=== PATIENT | male | born 2000 | race Caucasian/White ===

== ENCOUNTER 2019-03-24 11:05 | Emergency (ER) | payer BC, OTHER ==
[2019-03-24 11:20] VITALS: RESP 18
[2019-03-24] MEDS ORDERED: DIPH,PERTUS(ACELL)TETVAC-LF 0.5 ML VIAL IM ONE (11:37)
[2019-03-24] MEDS ORDERED: LIDOCAINE 1% INJ 10MG/ML (20 ML MDV) SQ ONE (11:38)
[2019-03-24] MEDS ORDERED: ceFAZolin 1,000 MG VIAL (IM USE) IM STA (11:38)
--- NOTE | 2019-03-24 11:41 | ED ---
General Adult HPI - General Chief complaint: Wound/Laceration Stated complaint: Arm laceration-[facility] Time Seen by Provider: 03/24/19 11:27 Source: patient, RN notes reviewed, old records reviewed Mode of arrival: ambulatory Limitations: no limitations - History of Present Illness Initial comments: Patient is a 18-year-old male presents emergency department today for a laceration over his left anterior forearm. Patient reports that a soft fell on it. Patient reports it was a saws all. Patient reports that they saw was not running time. Patient states that he has pain with range of motion of his fingers. He states it was a laceration and involves muscle. Patient denies any fevers or chills, shortness of breath, nausea or vomiting. He does report normal sensation to the distal hand. - Related Data Home Medications Medication Instructions Recorded Confirmed Naproxen Sodium [Aleve] 440 mg PO Q12HR PRN 03/24/19 03/24/19 Previous Rx's Medication Instructions Recorded Cephalexin [Keflex] 500 mg PO Q6HR #28 cap 03/24/19 Ibuprofen [Motrin] 600 mg PO Q6HR PRN #20 tab 03/24/19 Allergies Allergy/AdvReac Type Severity Reaction Status Date / Time peanut Allergy Swelling Verified 03/24/19 11:32 Review of Systems ROS Statement: Those systems with pertinent positive or pertinent negative responses have been documented in the HPI. ROS Other: All systems not noted in ROS Statement are negative. Past Medical History Past Medical History: No Reported History History of Any Multi-Drug Resistant Organisms: None Reported Past Surgical History: No Surgical Hx Reported Past Psychological History: No Psychological Hx Reported Smoking Status: Never smoker Past Alcohol Use History: None Reported Past Drug Use History: None Reported General Exam - General Exam Comments Initial Comments: 18-year-old male. Alert and oriented 3. Limitations: no limitations General appearance: alert Head exam: Present: atraumatic, normocephalic, normal inspection Eye exam: Present: normal appearance, PERRL, EOMI. Absent: scleral icterus, conjunctival injection, periorbital swelling ENT exam: Present: normal exam, mucous membranes moist Neck exam: Present: normal inspection. Absent: tenderness, meningismus, lymphadenopathy Respiratory exam: Present: normal lung sounds bilaterally. Absent: respiratory distress, wheezes, rales, rhonchi, stridor Cardiovascular Exam: Present: regular rate, normal rhythm, normal heart sounds. Absent: systolic murmur, diastolic murmur, rubs, gallop, clicks GI/Abdominal exam: Present: soft, normal bowel sounds. Absent: distended, tenderness, guarding, rebound, rigid Extremities exam: Present: normal inspection, full ROM, normal capillary refill. Absent: tenderness, pedal edema, joint swelling, calf tenderness Left Elbow exam: Present: normal inspection, full ROM Forearm Wrist exam: Present: full ROM, laceration (Patient has a 6 cm laceration over the anterior forearm.). Absent: normal inspection Hand Wrist exam: Present: normal inspection, full ROM Neuro motor exam: Present: wrist extension intact, thumb opposition intact, thumb IP flexion intact, thumb adduction intact, fingers 2-5 abduction intact Back exam: Present: normal inspection Neurological exam: Present: alert, oriented X3, CN II-XII intact Psychiatric exam: Present: normal affect, normal mood Skin exam: Present: warm, dry, intact, normal color. Absent: rash Course Vital Signs 03/24/19 03/24/19 11:17 13:39 Temperature 98.3 F 98 F Pulse Rate 76 60 Respiratory 18 18 Rate Blood Pressure 134/77 133/70 O2 Sat by Pulse 100 Oximetry Procedures - Laceration Laceration #1 Site: upper extremity (forearm) Size (cm): 6 Description: linear Depth: involves muscle layer Anesthetic Used: lidocaine 1% Anesthesia Technique: local infiltration Amount (mls): 10 Pre-repair: wound explored, irrigated extensively Type of Sutures: nylon, vicryl Size of Sutures: 4-0 Number of Sutures: 14 (4 internal vicryl) Technique: simple, interrupted Patient Tolerated Procedure: well, no complications Medical Decision Making - Medical Decision Making 18-year-old male presents today after saw injury that fell onto his left forearm. Patient has full range motion of his fingers, sensation is normal distally. The same Patient does have a laceration of the muscle but no evidence of foreign bodies on x-ray. Patient's wound was thoroughly irrigated. 4 Vicryl sutures in 10 nylon sutures were placed to close the wound. Patient given his tetanus shot and I'm. Discussed with the Patient on Keflex for Concern for an Tympany and Wound Infection Prevention. Discussed Return Parameters. All Questions Were Answered. - Radiology Data Radiology results: report reviewed No acute osseous abnormality. Soft tissue injury. No radiopaque foreign bodies identified. Disposition Clinical Impression: Forearm laceration, Laceration of muscle Disposition: HOME SELF-CARE Condition: Good Instructions (If sedation given, give patient instructions): Care For Your Stitches (ED) Additional Instructions: Please return to the emergency room in 8-10 days to have sutures removed. Please leave wound covered for the first 24-48 hours and then leave open to air after that time. Please use clean soap and water to clean the suture area to prevent scabbing over the top of your sutures. Please watch for any signs of infection which may include but not limited to increased pain, swelling, redness, fever or chills. Please return to the emergency room if any signs of infection do occur. Please return to the emergency room for any other concerns or complications. - Prescriptions: Cephalexin [Keflex] 500 mg PO Q6HR #28 cap Ibuprofen [Motrin] 600 mg PO Q6HR PRN #20 tab PRN Reason: Pain Is patient prescribed a controlled substance at d/c from ED?: No Referrals: Hermes Nair III, MD [Primary Care Provider] - 1-2 days Kirby Adams MD [STAFF PHYSICIAN] - 1-2 days Time of Disposition: 13:23
--- NOTE | 2019-03-24 11:55 | XR ---
EXAMINATION TYPE: XR forearm LT DATE OF EXAM: 03/24/2019 COMPARISON: None HISTORY: Laceration from saw TECHNIQUE: Left forearm is examined in 2 projections. FINDINGS: There is a large soft tissue injury over the ulnar lateral aspect of the soft tissues. No r adiopaque foreign bodies are evident. The osseous structures are intact. IMPRESSION: 1. No acute osseous abnormality. 2. Soft tissue injury. No radiopaque foreign bodies identified.
[2019-03-24] MEDS ORDERED: IBUPROFEN 600 MG STARTER PACK 4 TAB BTL PO STA (13:23)
[2019-03-24 13:40] VITALS: BP 133/70; PULSE 60; TEMP 98
== END 2019-03-24 13:39 | disposition home or self-care (01) ==
LOC: EC 11:05
DX: S51.812A Laceration without foreign body of left forearm, initial encounter (principal); Z23 Encounter for immunization; Z91.010 Allergy to peanuts; W31.2XXA Contact with powered woodworking and forming machines, initial encounter; Y92.69 Other specified industrial and construction area as the place of occurrence of the external cause; Y99.0 Civilian activity done for income or pay
CPT/HCPCS: 73090; 90715; 99283; 12002; 90471; 96372; J0690; J2001

== ENCOUNTER 2019-05-07 09:38 | Emergency (ER) | payer BC, OTHER ==
[2019-05-07 09:47] VITALS: RESP 18; TEMP 97.9
[2019-05-07] MEDS ORDERED: LIDOCAINE 1% INJ 10MG/ML (20 ML MDV) SQ ONE (10:04)
[2019-05-07] MEDS ORDERED: HYDROcodone/APAP 5-325MG 1 EACH TAB PO STA (10:04)
--- NOTE | 2019-05-07 10:07 | ED ---
General Adult HPI - General Chief complaint: Extremity Injury, Upper Stated complaint: Nail through fingers Time Seen by Provider: 05/07/19 09:54 Source: patient Mode of arrival: ambulatory Limitations: no limitations - History of Present Illness Initial comments: Patient is a 18-year-old male presenting to emergency Department with a chief complaint of foreign body in the hand. Patient reports he was working with a nail gun when he accidentally shot a nail through his left second and third digit. Patient denies any numbness and tingling. Patient reports the pain is 8 and throbbing. Patient has limited range of motion and the second and third digit due to them being stuck together from the nail. Patient reports his tetanus is up-to-date. Patient denies taking medication to alleviate the symptoms. - Related Data Home Medications Medication Instructions Recorded Confirmed Pseudoephedrine HCl [Sudafed] 30 mg PO Q4HR PRN 05/07/19 05/07/19 guaiFENesin [Mucinex] 600 mg PO BID PRN 05/07/19 05/07/19 Previous Rx's Medication Instructions Recorded Cephalexin [Keflex] 500 mg PO Q6HR #40 cap 05/07/19 Allergies Allergy/AdvReac Type Severity Reaction Status Date / Time peanut Allergy Swelling Verified 05/07/19 10:21 Review of Systems ROS Statement: Those systems with pertinent positive or pertinent negative responses have been documented in the HPI. ROS Other: All systems not noted in ROS Statement are negative. Past Medical History Past Medical History: No Reported History History of Any Multi-Drug Resistant Organisms: None Reported Past Surgical History: No Surgical Hx Reported Past Psychological History: No Psychological Hx Reported Smoking Status: Never smoker Past Alcohol Use History: None Reported Past Drug Use History: None Reported General Exam Limitations: no limitations General appearance: alert, in no apparent distress Head exam: Present: atraumatic, normocephalic, normal inspection Eye exam: Present: normal appearance, PERRL, EOMI Pupils: Present: normal accommodation ENT exam: Present: normal exam, normal oropharynx, mucous membranes moist, TM's normal bilaterally, normal external ear exam Neck exam: Present: normal inspection, full ROM Respiratory exam: Present: normal lung sounds bilaterally Cardiovascular Exam: Present: regular rate, normal rhythm, normal heart sounds Extremities exam: Present: tenderness (Tenderness at the site), normal capillary refill, other (+2 ulnar and radial pulses bilaterally.). Absent: normal inspection (Steel nail through the distal end of second and third digit) Back exam: Present: normal inspection, full ROM Neurological exam: Present: alert, oriented X3 Psychiatric exam: Present: normal affect, normal mood Skin exam: Present: warm, intact, normal color Course Vital Signs 05/07/19 09:44 Temperature 97.9 F Pulse Rate 86 Respiratory 18 Rate Blood Pressure 148/87 O2 Sat by Pulse 100 Oximetry Procedures - Orthopedic Splinting/Casting Injury #1 Side: left Upper Extremity Injury Location: finger Upper Extremity Immobilizer: finger (other) (Second left digit) Injury #2 Side: left Upper Extremity Injury Location: finger (Third left digit) Upper Extremity Immobilizer: finger (other) Medical Decision Making - Medical Decision Making Patient is a 18-year-old male presenting to emergency department with a chief complaint of foreign body in the left hand. The nail appears to be going through his distal second and third digit. Patient is neurovascularly intact. X-ray before foreign body removal indicates no bony fractures. Appears the nail does not go through any of the bones, only soft tissue. I was able to remove the foreign body by cutting the top end and pulling the nail through. Patient was given analgesia and digital block. Patient will be discharged with Keflex. Repeat x-ray shows a chip fracture on the second and third digit. Finger splint applied on the fingers. Patient given Tylenol 3 starter pack and advised about the possible side effects to medication. Patient advised to follow-up with orthopedics. Strict return parameters were thoroughly discussed the patient was under standing and agreeable. Case discussed with physician. Disposition Clinical Impression: Foreign body finger, Puncture wound of finger of left hand Disposition: HOME SELF-CARE Condition: Stable Instructions (If sedation given, give patient instructions): Soft Tissue Foreign Body (ED) Additional Instructions: Please follow up with orthopedics. Please take prescribed medication as directed. Please return to emergency department if symptoms worsen. Prescriptions: Cephalexin [Keflex] 500 mg PO Q6HR #40 cap Is patient prescribed a controlled substance at d/c from ED?: No Referrals: Hermes Nair III, MD [Primary Care Provider] - 1-2 days Kevin Gasca DO [Medical Doctor] - 1-2 days Time of Disposition: 11:55
--- NOTE | 2019-05-07 10:39 | XR ---
EXAMINATION TYPE: XR hand complete LT DATE OF EXAM: 05/07/2019 CLINICAL HISTORY: Foreign second and third digits TECHNIQUE: Frontal, lateral and oblique images of the left hand are obtained. COMPARISON: None. FINDINGS: Foreign body is noted to traverse the second and third digits. No obvious bony fracture is identified. IMPRESSION: Foreign body as noted. ICD 10 NO FRACTURE, INITIAL EVALUATION
--- NOTE | 2019-05-07 11:59 | XR ---
EXAMINATION TYPE: XR hand limited LT DATE OF EXAM: 05/07/2019 CLINICAL HISTORY: Foreign body removal TECHNIQUE: Frontal, lateral and oblique images of the left hand are obtained. COMPARISON: None. FINDINGS: Nail foreign body has been removed. Noted are chip fractures involving the distal phalanx r ight second digit as well as the middle phalanx of the third digit. IMPRESSION: As above
[2019-05-07] MEDS ORDERED: CEPHALEXIN 500MG STARTER PACK 4 CAP BTL PO STA (12:09)
[2019-05-07] MEDS ORDERED: ACET/COD 300 MG/30 MG STARTER PACK 6 TAB BTL PO STA (12:09)
[2019-05-07 12:38] VITALS: BP 136/96; PULSE 58
== END 2019-05-07 12:44 | disposition home or self-care (01) ==
LOC: EC 09:38
DX: S61.243A Puncture wound with foreign body of left middle finger without damage to nail, initial encounter (principal); S62.631A Displaced fracture of distal phalanx of left index finger, initial encounter for closed fracture; S62.623A Displaced fracture of middle phalanx of left middle finger, initial encounter for closed fracture; Z91.010 Allergy to peanuts; W45.0XXA Nail entering through skin, initial encounter; Y93.89 Activity, other specified; Y92.69 Other specified industrial and construction area as the place of occurrence of the external cause
CPT/HCPCS: 73120; 73130; 99283; 64450; J2001

== ENCOUNTER 2019-08-25 01:06 | Emergency (ER) | payer OTHER ==
[2019-08-25 01:13] VITALS: RESP 18; TEMP 97.3
--- NOTE | 2019-08-25 01:27 | ED ---
General Adult HPI - General Chief complaint: Urogenital Stated complaint: Testicular Pain Time Seen by Provider: 08/25/19 01:15 Source: patient, RN notes reviewed, old records reviewed Mode of arrival: ambulatory Limitations: no limitations - History of Present Illness Initial comments: 19-year-old male patient no pertinent past history presents to the ED with right testicular pain. Patient reports he was woke up with pain in his right testicle. He describes as a dull pain. States this approximate half an hour before presentation hospital. Denies any dysuria, denies a concern for STI. Systemic: Pt denies fatigue, fever/chills, rash. Pt denies weakness, night sweats, weight loss. Neuro: Pt denies headache, visual disturbances, syncope or pre-syncope. HEENT: Pt denies ocular discharge or irritation, otalgia, rhinorrhea, pharyngitis or notable lymphadenopathy. Cardiopulmonary: Pt denies chest pain, SOB, heart palpitations, dyspnea on exertion. Abdominal/GI: Pt denies abdominal pain, n/v/d. : Pt denies dysuria, burning w/ urination, frequency/urgency. Denies new onset urinary or bowel incontinence. MSK: Pt denies myalgia, loss of strength or function in extremities. Neuro: Pt denies new onset weakness, paresthesias. - Related Data Home Medications Medication Instructions Recorded Confirmed Pseudoephedrine HCl [Sudafed] 30 mg PO Q4HR PRN 05/07/19 05/07/19 guaiFENesin [Mucinex] 600 mg PO BID PRN 05/07/19 05/07/19 Previous Rx's Medication Instructions Recorded Cephalexin [Keflex] 500 mg PO Q6HR #40 cap 05/07/19 Allergies Allergy/AdvReac Type Severity Reaction Status Date / Time peanut Allergy Swelling Verified 05/07/19 10:21 Review of Systems ROS Statement: Those systems with pertinent positive or pertinent negative responses have been documented in the HPI. ROS Other: All systems not noted in ROS Statement are negative. Past Medical History Past Medical History: No Reported History History of Any Multi-Drug Resistant Organisms: None Reported Past Surgical History: No Surgical Hx Reported Past Psychological History: No Psychological Hx Reported Smoking Status: Never smoker Past Alcohol Use History: Occasional Past Drug Use History: None Reported General Exam - General Exam Comments Initial Comments: Constitutional: NAD, AOX3, Pt has pleasant affect. HEENT: NC/AT, trachea midline, neck supple, no lymphadenopathy. Posterior pharynx non erythematous, without exudates. External ears appear normal, without discharge. Mucous membranes moist. Eyes PERRLA, EOM intact. There is no scleral icterus. No pallor noted. Cardiopulmonary: RRR, no murmurs, rubs or gallops, no JVD noted. Lungs CTAB in anterior and posterior chisholm. No peripheral edema. Abdominal exam: Abdomen soft and non-distended. Abdomen non-tender to palpation in all 4 quadrants. Bowel sounds active in LLQ. No hepatosplenomegaly. No ecchymosis Neuro: CN II-XII grossly intact. No nuchal rigidity. No raccon eyes, no white sign, no hemotympanum. No cervical spinal tenderness. MSK: No posterior calf tenderness bilaterally, homans sign negative bilaterally. Posterior tibialis and radial pulse +2 bilaterally. Sensation intact in upper and lower extremities. Full active ROM in upper and lower extremities, 5/5 stregnth. : Right testicle mildly tender to palpation posterior epididymis region. Cremasteric reflex intact. No blue dots sign no masses. No skin changes lesions or ulcerations. Limitations: no limitations Course Vital Signs 08/25/19 08/25/19 01:09 02:39 Temperature 97.3 F L Pulse Rate 72 75 Respiratory 18 18 Rate Blood Pressure 139/81 128/76 O2 Sat by Pulse 100 100 Oximetry Medical Decision Making - Medical Decision Making 19-year-old male patient no pertinent past history presents to the ED with right testicular pain. Patient reports he was woke up with pain in his right testicle. He describes as a dull pain. States this approximate half an hour before presentation hospital. Denies any dysuria, denies a concern for STI. Patient also and are stable, afebrile. Physical exam displayed: Right testicle mildly tender to palpation posterior epididymis region. Cremasteric reflex intact. No blue dots sign no masses. No skin changes lesions or ulcerations. Patient denies concern for STI she reports that he is sexually active however he is monogamous and he believes his partners as well. He declined prophylactic treatment however he does request urine to be tested. UA negative. Ultrasound didn't display no testicular torsion or mass, bilateral scrotal hydroceles, right side epididymal cysts noted. Patient was discharged with outpatient urology follow up. Will return to ED if condition worsens. Case discussed with Dr. Maki. - Lab Data Lab Results 08/25/19 Range/Units 02:00 Urine Color Yellow Urine Appearance Clear (Clear) Urine pH 6.0 (5.0-8.0) Ur Specific Ensign 1.024 (1.001-1.035) Urine Protein Negative (Negative) Urine Glucose (UA) Negative (Negative) Urine Ketones Negative (Negative) Urine Blood Negative (Negative) Urine Nitrite Negative (Negative) Urine Bilirubin Negative (Negative) Urine Urobilinogen <2.0 (<2.0) mg/dL Ur Leukocyte Esterase Negative (Negative) Disposition Clinical Impression: Hydrocele, Epididymal cyst, Varicocele Disposition: HOME SELF-CARE Condition: Stable Instructions (If sedation given, give patient instructions): Hydrocele (ED), Testicle Pain (ED) Additional Instructions: Follow-up with urologist tomorrow. Use nonsteroidal anti-inflammatories for pain. Return to ER if condition worsens. Is patient prescribed a controlled substance at d/c from ED?: No Referrals: Hermes Nair III, MD [Primary Care Provider] - 1-2 days Yosi Egan MD [STAFF PHYSICIAN] - 1-2 days
[2019-08-25 02:09] LABS: Appearance,Urine Clear (Clear); Bilirubin,Urine Negative (Negative); Blood,Urine Negative (Negative); Color,Urine Yellow; Glucose,Urine (UA) Negative (Negative); Ketones,Urine Negative (Negative); Leukocyte Esterase,Urine Negative (Negative); Nitrite,Urine Negative (Negative); Protein,Urine Negative (Negative); Specific Gravity,Urine 1.024 (1.001-1.035); Urobilinogen,Urine <2.0 mg/dL (<2.0)
--- NOTE | 2019-08-25 02:11 | US ---
EXAMINATION TYPE: US scrotum with doppler. Grayscale and color Doppler Duplex imaging performed of t sukhdev scrotum. DATE OF EXAM: 08/25/2019 COMPARISON: NONE CLINICAL HISTORY: testicular pain. Right-sided testicular pain x 1 hour. EXAM MEASUREMENTS: TESTICLES: Right Testicle: 4.7 x 2.9 x 2.6 cm Left Testicle: 4.4 x 2.9 x 2.5 cm Hyperechoic area seen within left testicle: 0.2 x 0.2 x 0.1 cm. EPIDIDYMIS HEAD: Right Epididymis: 1.3 x 1.9 x 1.0 cm Left Epididymis: 1.3 x 1.9 x 0.8 cm Right epididymis appears heterogeneous. Two hypoechoic areas seen. #1 measures: 1.1 x 0.9 x 0.6 cm. # 2 measures: 0.5 x 0.6 x 0.2 cm. Doppler performed to assess for testicular vascularity; bilateral color flow and waveforms are seen. Presence of hydroceles: Right measures: 3.7 x 0.6 x 1.0 cm. Left measures: 4.0 x 1.7 x 1.0 cm. Presence of varicoceles: Vessels measure up to 0.2 cm on left side. IMPRESSION: No testicular torsion or mass. Bilateral scrotal hydroceles. Right side epididymal cysts noted.
[2019-08-25] MEDS ORDERED: KETOROLAC 60 MG/2 ML VIAL IM STA (02:29)
[2019-08-25 02:40] VITALS: BP 128/76; PULSE 75
[2019-08-26 14:56] LABS: C. trachomatis,PCR Negative (Neg,Equiv); Chlamydia trachomatis Source Urine; N. gonorrhoeae,PCR Negative (Neg,Equiv); Neisseria Source Urine
== END 2019-08-25 02:44 | disposition home or self-care (01) ==
LOC: EC 01:06
DX: N43.3 Hydrocele, unspecified (principal); N50.3 Cyst of epididymis; I86.1 Scrotal varices; Z91.010 Allergy to peanuts
CPT/HCPCS: 81003; 87491; 87591; 93975; 76870; 99284; 96372; J1885